=== PATIENT | female | born 1945 | race American Indian/Alaskan Native ===

== ENCOUNTER 2018-04-22 11:43 | Emergency (ER) | payer MEDICARE, MEDICAID ==
[2018-04-22 12:10] VITALS: BP 127/48
--- NOTE | 2018-04-22 15:40 | Emergency Department Report ---
ED General Adult HPI - General Chief complaint: Pain General Stated complaint: TOE PAIN Time Seen by Provider: 04/22/18 15:00 Source: patient Mode of arrival: Wheelchair Limitations: Physical Limitation - History of Present Illness Initial comments: Ms Knowles is a 72 year-old woman with extensive PMH who presents with pain in her left 4th and 5th toes. Was riding the medical van to her appointment on Wednesday and her left foot got stuck between her wheelchair and the rail inside the van. Has been having pain in her 4th and 5th toes since this time. Does not walk. bed and wheelchair bound. Decreased sensation in feet due to diabetes. No other acute complaints. - Related Data Allergies Allergy/AdvReac Type Severity Reaction Status Date / Time furosemide [From Lasix] Allergy Unknown Verified 04/22/18 12:14 latex Allergy Unknown Verified 04/22/18 12:14 aspirin AdvReac Vomiting Verified 04/22/18 12:14 morphine AdvReac Unknown Verified 04/22/18 12:14 tetracycline AdvReac Vomiting Verified 04/22/18 12:14 ED Review of Systems ROS: Stated complaint: TOE PAIN Other details as noted in HPI Comment: All other systems reviewed and negative ED Past Medical Hx - Past Medical History Previous Medical History?: Yes Hx Hypertension: Yes Hx Heart Attack/AMI: Yes Hx Congestive Heart Failure: Yes Hx Diabetes: Yes Hx GERD: Yes Hx Renal Disease: Yes Hx of Cancer: Yes (bone and blood) Hx Sickle Cell Disease: No (trait) Hx Arthritis: Yes Hx Headaches / Migraines: Yes Hx Asthma: Yes Hx COPD: Yes Additional medical history: fibromyalgia - Surgical History Past Surgical History?: Yes Hx Cholecystectomy: Yes Additional Surgical History: tubal, growth removed from left abdominal area, toncilectomy - Social History Smoking Status: Former Smoker Substance Use Type: None ED Physical Exam - General Limitations: No Limitations, Physical Limitation General appearance: alert, in no apparent distress - Head Head exam: Present: atraumatic, normocephalic - Eye Eye exam: Present: normal appearance. Absent: EOMI - ENT ENT exam: Present: normal exam, mucous membranes moist - Neck Neck exam: Present: normal inspection. Absent: tenderness - Cardiovascular Cardiovascular Exam: Present: regular rate, normal rhythm - Extremities Exam Extremities exam: Present: other (No swelling, no bruising to left 4th 5th toes. No foot bruising. minimal pedal edema, L>R. No calf tenderness, no leg swelling. Brisk cap refill in all digits. Sensation intact 4th 5th digits. ) - Neurological Exam Neurological exam: Present: alert, oriented X3 - Psychiatric Psychiatric exam: Present: normal affect, normal mood - Skin Skin exam: Present: warm, dry, intact, normal color ED Course Vital Signs 04/22/18 11:55 Temperature 98.4 F Pulse Rate 66 Respiratory 18 Rate Blood Pressure 127/48 O2 Sat by Pulse 98 Oximetry ED Medical Decision Making - Radiology Data IMPRESSION: Osteopenia limits evaluation. No obvious fracture. Vascular calcifications. Nulp-td-wjudbeae multifocal nonspecific arthrosis. Suspect hammertoe deformities at the 2nd 3rd digits. - Medical Decision Making Ms Knowles is a 72 year-old woman with left 4th 5th toe injuries. Sustained on Wednesday. No bruising, no swelling, neuro intact, vascular intact on exam. Not ambulatory. XR without fracture. Continue her home percocet for pain. DC to home. Critical care attestation.: If time is entered above; I have spent that time in minutes in the direct care of this critically ill patient, excluding procedure time. ED Disposition Clinical Impression: Toe injury Qualifiers: Encounter type: initial encounter Laterality: left Qualified Code(s): S99.922A - Unspecified injury of left foot, initial encounter Disposition: DC-01 TO HOME OR SELFCARE Is pt being admited?: No Does the pt Need Aspirin: No Condition: Stable Instructions: Foot Sprain (ED), Foot Contusion (ED) Referrals: PRIMARY CARE, [Primary Care Provider] - 3-5 Days
--- NOTE | 2018-04-22 16:19 | XRay Report ---
FINAL REPORT EXAM: XR FOOT 3+V LT HISTORY: foot injury, 4th/5th toe injuries TECHNIQUE: Three views left foot. PRIORS: None currently available. FINDINGS: Diffuse osteopenia. Vascular calcifications. Flexion deformities at the 2nd and 3rd toes. There is no acute fracture. There is no evidence for healing fracture. There is no acute dislocation. Nack-wo-gqnoyizo nonspecific arthrosis throughout the toe. Small Achilles enthesophyte and calcaneal plantar spur. There is no cortical destruction to suggest osteomyelitis. There are no suspicious osseous lesions. There are no radiopaque foreign objects. IMPRESSION: Osteopenia limits evaluation. No obvious fracture. Vascular calcifications. Moka-yj-incaqqdy multifocal nonspecific arthrosis. Suspect hammertoe deformities at the 2nd 3rd digits.
== END 2018-04-22 19:00 | disposition home or self-care (01) ==
LOC: ED 11:43
DX: S99.922A Unspecified injury of left foot, initial encounter (principal); I11.0 Hypertensive heart disease with heart failure; E11.9 Type 2 diabetes mellitus without complications; I50.9 Heart failure, unspecified; J44.9 Chronic obstructive pulmonary disease, unspecified; K21.9 Gastro-esophageal reflux disease without esophagitis; G43.909 Migraine, unspecified, not intractable, without status migrainosus; Z87.891 Personal history of nicotine dependence; Z85.830 Personal history of malignant neoplasm of bone; Z85.89 Personal history of malignant neoplasm of other organs and systems; Z88.1 Allergy status to other antibiotic agents; Z88.6 Allergy status to analgesic agent; Z88.8 Allergy status to other drugs, medicaments and biological substances; Z91.040 Latex allergy status; W22.8XXA Striking against or struck by other objects, initial encounter; Y93.89 Activity, other specified; Y92.89 Other specified places as the place of occurrence of the external cause; Y99.8 Other external cause status

== ENCOUNTER 2021-06-07 13:34 | Inpatient (IN) | payer MEDICARE ==
--- NOTE | 2021-06-07 14:46 | Event Note ---
Date: 06/07/21 The patient was evaluated in the emergency department for symptoms described in the history of present illness. He/she was evaluated in the context of the global COVID-19 pandemic, which necessitated consideration that the patient might be at risk for infection with the virus that causes COVID-19. Institutional protocols and algorithms that pertain to the evaluation of patients at risk for COVID-19 are in a state of rapid change based on information released by regulatory bodies including the CDC and federal and state organizations. These policies and algorithms were followed during the patient's care in the emergency department. Please note that these policies, procedures and recommendations changed on a rapid basis. Nursing team having difficulty obtaining IV access. Assisted my colleague in obtaining IV access. Using typical aseptic technique, the right neck is prepped in typical aseptic fashion. It is anesthetized with 5 cc of 1% lidocaine with epinephrine, and then a 2-1/2 inch 18-gauge Angiocath, 130 x 64 mm, is inserted into the right internal jugular vein, under direct ultrasound guidance. The catheter is advanced easily, and dark red blood is pulled back. The line is secured in place by caring team, and may be used for 24 hours for IV access. However, we do recommend that inpatient team obtain definitive IV access, such as PICC line or midline. If this patient does require a central line, guidewire may be passed through this Angiocath via Seldinger technique, using maximum barrier precautions in typical sterile technique, to obtain central venous access.
[2021-06-07] MEDS ORDERED: SODIUM CHLORIDE 0.9% 1000 ML 2,000 ML ONE ×2 (15:05)
[2021-06-07] MEDS ORDERED: NALOXONE 0.4 MG/1 ML INJ ONE (15:16)
--- NOTE | 2021-06-07 15:27 | Emergency Department Report ---
<TRAMAINE ESTRADA - Last Filed: 06/07/21 18:26> ED Altered Mental Status HPI - General Stated Complaint: AMS Time Seen by Provider: 06/07/21 14:52 - Related Data Allergies Allergy/AdvReac Type Severity Reaction Status Date / Time furosemide [From Lasix] Allergy Unknown Verified 04/22/18 12:14 latex Allergy Unknown Verified 04/22/18 12:14 aspirin AdvReac Vomiting Verified 04/22/18 12:14 morphine AdvReac Unknown Verified 04/22/18 12:14 tetracycline AdvReac Vomiting Verified 04/22/18 12:14 - Lab Data Result diagrams: 06/07/21 15:22 06/07/21 15:22 - Medical Decision Making I spoke with Dr. No. Dr. No hospitalist assessed the patient to the inpatient service. Patient is admitted to telemetry in fair condition ED Disposition Clinical Impression: Acute encephalopathy, GI bleed, Anemia, SIRS (systemic inflammatory response syndrome) Disposition: ADMITTED INPATIENT Is pt being admited?: Yes Does the pt Need Aspirin: No Condition: Fair <JOAN CORTEZ - Last Filed: 06/08/21 08:03> ED Altered Mental Status HPI - General Source: EMS - History of Present Illness Initial Comments: 75-year-old female, history of dementia, malnutrition, rheumatoid arthritis, diabetes, COPD, CAD, COVID-19, CKD, anemia of chronic disease, presents to ED from [facility] for altered mental status. Patient has been altered since 10 AM. snf states she is normally talkative. They also report patient has been "passing blood clots" for unknown period of time. MD Complaint: altered mental status -: This morning Severity: severe Context: unknown ED Review of Systems ROS: Stated complaint: AMS Other details as noted in HPI Comment: Unobtainable due to pts medical conditions ED Past Medical Hx - Past Medical History Hx Hypertension: Yes Hx Heart Attack/AMI: Yes Hx Congestive Heart Failure: Yes Hx Diabetes: Yes Hx GERD: Yes Hx Renal Disease: Yes Hx Sickle Cell Disease: No (trait) Hx Arthritis: Yes Hx Headaches / Migraines: Yes Hx Asthma: Yes Hx COPD: Yes Additional medical history: fibromyalgia - Surgical History Hx Cholecystectomy: Yes Additional Surgical History: tubal, growth removed from left abdominal area, toncilectomy - Social History Smoking Status: Former Smoker Substance Use Type: None ED Physical Exam - General General appearance: obtunded, other (appears unkempt) - Head Head exam: Present: atraumatic, normocephalic - Eye Pupils: Present: other (Pinpoint bilaterally) - ENT ENT exam: Present: mucous membranes dry - Neck Neck exam: Present: normal inspection - Respiratory Respiratory exam: Present: normal lung sounds bilaterally. Absent: respiratory distress - Cardiovascular Cardiovascular Exam: Present: normal rhythm, tachycardia - GI/Abdominal GI/Abdominal exam: Present: soft. Absent: distended, tenderness - Rectal Rectal exam: Present: heme (+) stool, black stool, other (Melena on exam) - Extremities Exam Extremities exam: Present: normal inspection - Neurological Exam Neurological exam: Present: other (GCS 7) - Skin Skin exam: Present: warm, dry, intact, normal color ED Course Vital Signs 06/07/21 06/07/21 06/07/21 13:37 13:45 14:01 Temperature Pulse Rate 112 H 108 H Respiratory 15 24 17 Rate Blood Pressure 106/54 114/61 O2 Sat by Pulse 96 100 100 Oximetry 06/07/21 06/07/21 06/07/21 14:15 14:31 14:45 Temperature Pulse Rate 107 H 101 H 96 H Respiratory 17 28 H 21 Rate Blood Pressure 109/55 113/61 102/55 O2 Sat by Pulse 100 100 100 Oximetry 06/07/21 06/07/21 06/07/21 15:01 15:15 15:31 Temperature Pulse Rate 102 H 99 H 106 H Respiratory 12 11 L 25 H Rate Blood Pressure 85/48 96/50 82/55 O2 Sat by Pulse 100 100 100 Oximetry 06/07/21 06/07/21 06/07/21 15:45 16:01 16:07 Temperature 97.6 F Pulse Rate 103 H 95 H 99 H Respiratory 20 22 12 Rate Blood Pressure 110/62 93/48 97/54 O2 Sat by Pulse 100 100 100 Oximetry 06/07/21 06/07/21 06/07/21 16:15 16:20 16:31 Temperature Pulse Rate 97 H 98 H Respiratory 15 14 Rate Blood Pressure 97/54 87/46 O2 Sat by Pulse 100 100 Oximetry 06/07/21 06/07/21 06/07/21 16:45 17:01 17:15 Temperature Pulse Rate 93 H 96 H 89 Respiratory 23 24 26 H Rate Blood Pressure 97/49 91/49 96/49 O2 Sat by Pulse 100 100 Oximetry 06/07/21 06/07/21 06/07/21 17:31 17:45 18:01 Temperature Pulse Rate 91 H 98 H 99 H Respiratory 19 20 21 Rate Blood Pressure 89/47 128/59 134/58 O2 Sat by Pulse 100 100 100 Oximetry 06/07/21 06/07/21 06/07/21 18:15 18:31 19:01 Temperature Pulse Rate 97 H 93 H 91 H Respiratory 19 20 20 Rate Blood Pressure 127/54 119/52 113/55 O2 Sat by Pulse 98 100 99 Oximetry 06/07/21 06/07/21 06/07/21 19:15 19:20 19:30 Temperature 92.5 F L Pulse Rate 92 H 91 H Respiratory 20 19 Rate Blood Pressure 99/50 99/50 O2 Sat by Pulse 100 100 Oximetry 06/07/21 06/07/21 06/07/21 19:45 20:01 20:15 Temperature Pulse Rate 93 H 90 93 H Respiratory 19 12 22 Rate Blood Pressure 100/52 110/49 101/44 O2 Sat by Pulse 100 100 99 Oximetry 06/07/21 06/07/21 06/07/21 20:30 21:15 21:30 Temperature Pulse Rate 90 91 H Respiratory 23 23 Rate Blood Pressure 94/46 101/44 O2 Sat by Pulse 100 100 100 Oximetry 06/07/21 06/07/21 06/07/21 22:15 22:31 23:00 Temperature 96.5 F L Pulse Rate 89 88 Respiratory 26 H 28 H Rate Blood Pressure 94/46 94/46 O2 Sat by Pulse 100 100 Oximetry 06/07/21 06/08/21 06/08/21 23:45 00:01 00:45 Temperature Pulse Rate 91 H 92 H 97 H Respiratory 28 H 26 H 27 H Rate Blood Pressure 92/47 92/47 90/48 O2 Sat by Pulse 100 99 99 Oximetry 06/08/21 06/08/21 06/08/21 01:01 01:29 01:31 Temperature 97.8 F Pulse Rate 99 H 98 H Respiratory 27 H 29 H Rate Blood Pressure 90/48 84/47 O2 Sat by Pulse 99 99 Oximetry 06/08/21 06/08/21 06/08/21 01:41 01:51 02:01 Temperature Pulse Rate 100 H 100 H 100 H Respiratory 27 H 28 H 28 H Rate Blood Pressure 84/46 84/46 84/46 O2 Sat by Pulse 99 99 99 Oximetry - Reevaluation(s) Reevaluation #1: 06/07/21 15:48 I spoke with daughter, Summer Dejesus, over the phone ([phone]). Daughter states that patient is actually DNR/DNI status, even though [facility] paperwork states that patient is full code. States she has a copy of the signed pa perwork. Daughter states she visited patient with her aunt last week. Daughter reports patient stated only that she was "tired." States patient did not say anything for the rest of the visit. Daughter states patient has stopped eating, stopped taking her medications. Physicians recommended that patient have a PEG tube placed, however patient refused. I have explained patient's condition to Chari Dejesus, which includes hypotension, GI bleed, altered mental status. Daughter states she does not want any escalation of care, including no blood transfusions, no GI procedures. Daughter states it is patient's wishes. - Central Line Placement Right Femoral Consent Obtained: emergent situation Time Out Performed: Yes Patient Placed on Monitor/Pulse Ox: Yes Prep: mask, gown, gloves Central Line Prep: Chlorhexidine scrub Ultrasound Used for Placement: Yes Reason for Insertion: Emergency Venous Access Complications: other (unable to thread guidewire, line was not placed) - Lab Data Result diagrams: 06/08/21 04:43 06/08/21 04:43 Lab Results 06/07/21 06/07/21 06/07/21 Range/Units 15:22 15:22 15:22 WBC 29.5 H (4.5-11.0) K/mm3 RBC 2.37 L (3.65-5.03) M/mm3 Hgb 6.8 L (10.1-14.3) gm/dl Hct 21.4 L (30.3-42.9) % MCV 90 (79-97) fl MCH 29 (28-32) pg MCHC 32 (30-34) % RDW 16.4 H (13.2-15.2) % Plt Count 472 H (140-440) K/mm3 Add Manual Diff Complete Total Counted 100 Seg Neutrophils % Major Gifts Director Seg Neuts % (Manual) 92.0 H (40.0-70.0) % Lymphocytes % (Manual) 4.0 L (13.4-35.0) % Monocytes % (Manual) 4.0 (0.0-7.3) % Nucleated RBC % Not Reportable Seg Neutrophils # Man 27.1 H (1.8-7.7) K/mm3 Band Neutrophils # 0.0 K/mm3 Lymphocytes # (Manual) 1.2 (1.2-5.4) K/mm3 Abs React Lymphs (Man) 0.0 K/mm3 Monocytes # (Manual) 1.2 H (0.0-0.8) K/mm3 Eosinophils # (Manual) 0.0 (0.0-0.4) K/mm3 Basophils # (Manual) 0.0 (0.0-0.1) K/mm3 Metamyelocytes # 0.0 K/mm3 Myelocytes # 0.0 K/mm3 Promyelocytes # 0.0 K/mm3 Blast Cells # 0.0 K/mm3 WBC Morphology Not Reportable Hypersegmented Neuts Not Reportable Hyposegmented Neuts Not Reportable Hypogranular Neuts Not Reportable Smudge Cells Not Reportable Toxic Granulation Not Reportable Toxic Vacuolation Not Reportable Dohle Bodies Not Reportable Pelger-Huet Anomaly Not Reportable Lupe Rods Not Reportable Platelet Estimate Not Reportable Clumped Platelets Not Reportable Plt Clumps, EDTA Not Reportable Large Platelets Not Reportable Giant Platelets Not Reportable Platelet Satelliting Not Reportable Plt Morphology Comment Not Reportable RBC Morphology Normal Dimorphic RBCs Not Reportable Polychromasia Not Reportable Hypochromasia Not Reportable Poikilocytosis Not Reportable Anisocytosis Not Reportable Microcytosis Not Reportable Macrocytosis Not Reportable Spherocytes Not Reportable Pappenheimer Bodies Not Reportable Sickle Cells Not Reportable Target Cells Not Reportable Tear Drop Cells Not Reportable Ovalocytes Not Reportable Helmet Cells Not Reportable Pulido-Villalba Bodies Not Reportable [place] Rings Not Reportable [place] Cells Not Reportable Bite Cells Not Reportable Crenated Cell Not Reportable Elliptocytes Not Reportable Acanthocytes (Spur) Not Reportable Rouleaux Not Reportable Hemoglobin C Crystals Not Reportable Schistocytes Not Reportable Malaria parasites Not Reportable Hung Bodies Not Reportable Hem Pathologist Commnt No PT 26.3 H (12.2-14.9) Sec. INR 2.36 H (0.87-1.13) APTT 22.9 L (24.2-36.6) Sec. D-Dimer 1156.32 H (0-234) ng/mlDDU Sodium (137-145) mmol/L Potassium (3.6-5.0) mmol/L Chloride (98-107) mmol/L Carbon Dioxide (22-30) mmol/L Anion Gap mmol/L BUN (7-17) mg/dL Creatinine (0.6-1.2) mg/dL Estimated GFR ml/min BUN/Creatinine Ratio % Glucose 298 H (65-100) mg/dL Lactic Acid (0.7-2.0) mmol/L Calcium (8.4-10.2) mg/dL Ferritin (10.0-200.0) ng/mL Total Bilirubin (0.1-1.2) mg/dL AST (5-40) units/L ALT (7-56) units/L Alkaline Phosphatase (35-129) units/L Lactate Dehydrogenase 2899 H (91-180) units/L C-Reactive Protein 15.10 H (0.00-1.30) mg/dL Total Protein (6.3-8.2) g/dL Albumin (3.9-5) g/dL Albumin/Globulin Ratio % Urine Color (Yellow) Urine Turbidity (Clear) Urine pH (5.0-7.0) Ur Specific [place] (1.003-1.030) Urine Protein (Negative) mg/dL Urine Glucose (UA) (Negative) mg/dL Urine Ketones (Negative) mg/dL Urine Blood (Negative) Urine Nitrite (Negative) Urine Bilirubin (Negative) Urine Urobilinogen (<2.0) mg/dL Ur Leukocyte Esterase (Negative) Urine WBC (Auto) (0.0-6.0) /HPF Urine RBC (Auto) (0.0-6.0) /HPF U Epithel Cells (Auto) (0-13.0) /HPF Urine Bacteria (Auto) (Negative) /HPF Urine WBC Clumps /HPF Urine Mucus /HPF Blood Type Antibody Screen 06/07/21 06/07/21 06/07/21 Range/Units 15:22 15:22 16:55 WBC (4.5-11.0) K/mm3 RBC (3.65-5.03) M/mm3 Hgb (10.1-14.3) gm/dl Hct (30.3-42.9) % MCV (79-97) fl MCH (28-32) pg MCHC (30-34) % RDW (13.2-15.2) % Plt Count (140-440) K/mm3 Add Manual Diff Total Counted Seg Neutrophils % Seg Neuts % (Manual) (40.0-70.0) % Lymphocytes % (Manual) (13.4-35.0) % Monocytes % (Manual) (0.0-7.3) % Nucleated RBC % Seg Neutrophils # Man (1.8-7.7) K/mm3 Band Neutrophils # K/mm3 Lymphocytes # (Manual) (1.2-5.4) K/mm3 Abs React Lymphs (Man) K/mm3 Monocytes # (Manual) (0.0-0.8) K/mm3 Eosinophils # (Manual) (0.0-0.4) K/mm3 Basophils # (Manual) (0.0-0.1) K/mm3 Metamyelocytes # K/mm3 Myelocytes # K/mm3 Promyelocytes # K/mm3 Blast Cells # K/mm3 WBC Morphology Hypersegmented Neuts Hyposegmented Neuts Hypogranular Neuts Smudge Cells Toxic Granulation Toxic Vacuolation Dohle Bodies Pelger-Huet Anomaly Lupe Rods Platelet Estimate Clumped Platelets Plt Clumps, EDTA Large Platelets Giant Platelets Platelet Satelliting Plt Morphology Comment RBC Morphology Dimorphic RBCs Polychromasia Hypochromasia Poikilocytosis Anisocytosis Microcytosis Macrocytosis Spherocytes Pappenheimer Bodies Sickle Cells Target Cells Tear Drop Cells Ovalocytes Helmet Cells Pulido-Villalba Bodies [place] Rings Jolie Cells Bite Cells Crenated Cell Elliptocytes Acanthocytes (Spur) Rouleaux Hemoglobin C Crystals Schistocytes Malaria parasites Hung Bodies Hem Pathologist Commnt PT (12.2-14.9) Sec. INR (0.87-1.13) APTT (24.2-36.6) Sec. D-Dimer (0-234) ng/mlDDU Sodium (137-145) mmol/L Potassium (3.6-5.0) mmol/L Chloride (98-107) mmol/L Carbon Dioxide (22-30) mmol/L Anion Gap mmol/L BUN (7-17) mg/dL Creatinine (0.6-1.2) mg/dL Estimated GFR ml/min BUN/Creatinine Ratio % Glucose (65-100) mg/dL Lactic Acid 4.10 H* 6.60 H* (0.7-2.0) mmol/L Calcium (8.4-10.2) mg/dL Ferritin 06529.0 H (10.0-200.0) ng/mL Total Bilirubin (0.1-1.2) mg/dL AST (5-40) units/L ALT (7-56) units/L Alkaline Phosphatase (35-129) units/L Lactate Dehydrogenase (91-180) units/L C-Reactive Protein (0.00-1.30) mg/dL Total Protein (6.3-8.2) g/dL Albumin (3.9-5) g/dL Albumin/Globulin Ratio % Urine Color (Yellow) Urine Turbidity (Clear) Urine pH (5.0-7.0) Ur Specific [place] (1.003-1.030) Urine Protein (Negative) mg/dL Urine Glucose (UA) (Negative) mg/dL Urine Ketones (Negative) mg/dL Urine Blood (Negative) Urine Nitrite (Negative) Urine Bilirubin (Negative) Urine Urobilinogen (<2.0) mg/dL Ur Leukocyte Esterase (Negative) Urine WBC (Auto) (0.0-6.0) /HPF Urine RBC (Auto) (0.0-6.0) /HPF U Epithel Cells (Auto) (0-13.0) /HPF Urine Bacteria (Auto) (Negative) /HPF Urine WBC Clumps /HPF Urine Mucus /HPF Blood Type Antibody Screen 06/07/21 06/07/21 06/07/21 Range/Units 17:00 23:14 Unknown WBC (4.5-11.0) K/mm3 RBC (3.65-5.03) M/mm3 Hgb (10.1-14.3) gm/dl Hct (30.3-42.9) % MCV (79-97) fl MCH (28-32) pg MCHC (30-34) % RDW (13.2-15.2) % Plt Count (140-440) K/mm3 Add Manual Diff Total Counted Seg Neutrophils % Seg Neuts % (Manual) (40.0-70.0) % Lymphocytes % (Manual) (13.4-35.0) % Monocytes % (Manual) (0.0-7.3) % Nucleated RBC % Seg Neutrophils # Man (1.8-7.7) K/mm3 Band Neutrophils # K/mm3 Lymphocytes # (Manual) (1.2-5.4) K/mm3 Abs React Lymphs (Man) K/mm3 Monocytes # (Manual) (0.0-0.8) K/mm3 Eosinophils # (Manual) (0.0-0.4) K/mm3 Basophils # (Manual) (0.0-0.1) K/mm3 Metamyelocytes # K/mm3 Myelocytes # K/mm3 Promyelocytes # K/mm3 Blast Cells # K/mm3 WBC Morphology Hypersegmented Neuts Hyposegmented Neuts Hypogranular Neuts Smudge Cells Toxic Granulation Toxic Vacuolation Dohle Bodies Pelger-Huet Anomaly Lupe Rods Platelet Estimate Clumped Platelets Plt Clumps, EDTA Large Platelets Giant Platelets Platelet Satelliting Plt Morphology Comment RBC Morphology Dimorphic RBCs Polychromasia Hypochromasia Poikilocytosis Anisocytosis Microcytosis Macrocytosis Spherocytes Pappenheimer Bodies Sickle Cells Target Cells Tear Drop Cells Ovalocytes Helmet Cells Pulido-Villalba Bodies [place] Rings Jolie Cells Bite Cells Crenated Cell Elliptocytes Acanthocytes (Spur) Rouleaux Hemoglobin C Crystals Schistocytes Malaria parasites Hung Bodies Hem Pathologist Commnt PT (12.2-14.9) Sec. INR (0.87-1.13) APTT (24.2-36.6) Sec. D-Dimer (0-234) ng/mlDDU Sodium 140 (137-145) mmol/L Potassium 4.2 (3.6-5.0) mmol/L Chloride 106.9 (98-107) mmol/L Carbon Dioxide 8 L* (22-30) mmol/L Anion Gap 29 mmol/L BUN 83 H (7-17) mg/dL Creatinine 2.1 H (0.6-1.2) mg/dL Estimated GFR 28 ml/min BUN/Creatinine Ratio 40 % Glucose 243 H (65-100) mg/dL Lactic Acid (0.7-2.0) mmol/L Calcium 10.1 (8.4-10.2) mg/dL Ferritin (10.0-200.0) ng/mL Total Bilirubin 0.40 (0.1-1.2) mg/dL AST 59 H (5-40) units/L ALT 21 (7-56) units/L Alkaline Phosphatase 135 H (35-129) units/L Lactate Dehydrogenase (91-180) units/L C-Reactive Protein (0.00-1.30) mg/dL Total Protein 5.1 L (6.3-8.2) g/dL Albumin 2.2 L (3.9-5) g/dL Albumin/Globulin Ratio 0.8 % Urine Color Yellow (Yellow) Urine Turbidity Turbid (Clear) Urine pH 5.0 (5.0-7.0) Ur Specific [place] 1.010 (1.003-1.030) Urine Protein >500 (Negative) mg/dL Urine Glucose (UA) Neg (Negative) mg/dL Urine Ketones Neg (Negative) mg/dL Urine Blood Lg (Negative) Urine Nitrite Neg (Negative) Urine Bilirubin Neg (Negative) Urine Urobilinogen < 2.0 (<2.0) mg/dL Ur Leukocyte Esterase Mod (Negative) Urine WBC (Auto) > 182.0 H (0.0-6.0) /HPF Urine RBC (Auto) 51.0 (0.0-6.0) /HPF U Epithel Cells (Auto) 9.0 (0-13.0) /HPF Urine Bacteria (Auto) 4+ (Negative) /HPF Urine WBC Clumps 3+ /HPF Urine Mucus 3+ /HPF Blood Type O POSITIVE Antibody Screen Negative - Medical Decision Making 75-year-old female presents to ED from retirement with altered mental status and GI bleed. Patient is obtunded. She does have some minimal withdrawal to pain. Patient has melena on rectal exam. Patient initially with normal blood pressure, however has been trending downward. Labs show elevated WBC count of 29.5. Hemoglobin is 6.8. snf records show that patient has a history of anemia of chronic disease, however we do not have a previous hemoglobin for comparison. Patient has lactic acid of 4.1. Covid markers were placed by nurse however patient apparently already had Covid last month, per EMS. I spoke with patient's daughter, who states that patient's CODE STATUS is DNR/DNI. Daughter does not want any aggressive treatment for patient. IV fluids, antibiotics, and Protonix have been ordered. Patient will likely need a hospice consult. I was unable to speak with hospitalist for admission as he was with a critical patient at this time. Oncoming physician, Dr. Estrada, will admit to Dr. No. - Differential Diagnosis GI bleed, dehydration, anemia, failure to thrive, infection Critical Care Time: Yes Critical care time in (mins) excluding proc time.: 35 Critical care attestation.: If time is entered above; I have spent that time in minutes in the direct care of this critically ill patient, excluding procedure time. Critical Care Time: 35 min
[2021-06-07 15:41] LABS: Hematocrit 21.4 % (30.3-42.9); Hemoglobin 6.8 gm/dl (10.1-14.3); Mean Corpuscular HGB Conc 32 % (30-34); Mean Corpuscular Volume 90 fl (79-97); Platelet Count 472 K/mm3 (140-440); Red Blood Count 2.37 M/mm3 (3.65-5.03); Red Cell Distribution Width 16.4 % (13.2-15.2)
[2021-06-07 15:51] LABS: INR 2.36 (0.87-1.13); Partial Thromboplastin Time 22.9 Sec. (24.2-36.6)
[2021-06-07 15:56] LABS: C-Reactive Protein 15.1 mg/dL (0.00-1.30)
--- NOTE | 2021-06-07 16:21 | XRay Report ---
CHEST 1 VIEW 06/07/2021 3:15 PM INDICATION / CLINICAL INFORMATION: AMS. COMPARISON: None available. FINDINGS: SUPPORT DEVICES: None. HEART / MEDIASTINUM: No significant abnormality. LUNGS / PLEURA: No significant pulmonary or pleural abnormality. No pneumothorax. ADDITIONAL FINDINGS: Advanced bilateral shoulder degenerative arthrosis. IMPRESSION: 1. No acute findings. Signer Name: Aria Dyer MD Signed: 06/07/2021 4:16 PM Workstation Name: [id number]
[2021-06-07] MEDS ORDERED: CEFEPIME/NS 1 GM/100 ML 1 GM/100 ML BAG IV ONE (16:32)
[2021-06-07] MEDS ORDERED: SODIUM CHLORIDE 0.9% 1000 ML IV SOLN IV ONE (16:33)
[2021-06-07] MEDS ORDERED: PANTOPRAZOLE 40 MG INJ IV ONE (16:35)
[2021-06-07] MEDS ORDERED: PANTOPRAZOLE 80 MG in SODIUM CHLORIDE 0.9% 100 ML IV SCH (17:00)
[2021-06-07] MEDS ORDERED: VANCOMYCIN 1,250 MG in SODIUM CHLORIDE 0.9% 250ML 250 ML IV ONE (17:00)
[2021-06-07 17:21] LABS: Total Cells Counted 100
[2021-06-07 17:22] LABS: RBC Morphology Normal
--- NOTE | 2021-06-07 21:24 | History and Physical Report ---
History of Present Illness Date of examination: 06/07/21 Date of admission: 06/07/2021 Chief complaint: Lower GI bleed 1 day History of present illness: 75-year-old female with history of dementia malnutrition, rheumatoid arthritis diabetes, coronary artery disease COVID-19 and chronic kidney disease sent from [facility] for altered mental status. Patient apparently is normally talkative. Nursing also reports passing blood clots for 1 day. Daughter does not want any blood transfusions or further interventions. Patient daughter wants hospice placement. - Past Medical History --Hypertension: Yes --Heart Attack/AMI: Yes --Congestive Heart Failure: Yes --Diabetes: Yes --GERD: Yes --Renal Disease: Yes Additional medical history: fibromyalgia - Surgical History --Cholecystectomy: Yes Additional Surgical History: tubal, growth removed from left abdominal area, ton cilectomy - Social History Smoking Status: Former Smoker Substance Use Type: None Review of Systems Comment: Unobtainable due to pts medical conditions Medications and Allergies Allergies Allergy/AdvReac Type Severity Reaction Status Date / Time furosemide [From Lasix] Allergy Unknown Verified 04/22/18 12:14 latex Allergy Unknown Verified 04/22/18 12:14 aspirin AdvReac Vomiting Verified 04/22/18 12:14 morphine AdvReac Unknown Verified 04/22/18 12:14 tetracycline AdvReac Vomiting Verified 04/22/18 12:14 Home Medications Medication Instructions Recorded Confirmed Last Taken Type Sertraline [Zoloft] 25 mg PO QDAY 06/08/21 06/08/21 06/06/21 History Topiramate [Topamax] 25 mg PO DAILY 06/08/21 06/08/21 06/06/21 History predniSONE [Deltasone] 5 mg PO QDAY 06/08/21 06/08/21 06/06/21 History Active Meds: Active Medications Pantoprazole Sodium 80 mg/ (Sodium Chloride) 100 mls @ 10 mls/hr IV DIRECT KIM Last Admin: 06/07/21 19:09 Dose: 8 mg/hr, 10 mls/hr Documented by: Exam - Constitutional Vitals: Temp Pulse Resp BP Pulse Ox 97.6 F 93 H 22 101/44 100 06/07/21 16:07 06/07/21 20:15 06/07/21 20:15 06/07/21 20:15 06/07/21 20:30 General appearance: Present: no acute distress, well-nourished - EENT Eyes: Present: PERRL ENT: hearing intact, clear oral mucosa - Neck Neck: Present: supple, normal ROM - Respiratory Respiratory effort: normal Respiratory: bilateral: CTA - Cardiovascular Heart rate: 78 Rhythm: regular Heart Sounds: Present: S1 & S2. Absent: rub, click - Extremities Extremities: pulses symmetrical, No edema Peripheral Pulses: within normal limits - Abdominal General gastrointestinal: Present: soft, non-tender, non-distended, normal bowel sounds Female genitourinary: Present: normal - Integumentary Integumentary: Present: clear, warm, dry - Musculoskeletal Musculoskeletal: generalized weakness - Psychiatric Psychiatric: other (Lethargic and confused) - Neurologic Neurologic: moves all extremities - Allied Health Allied health notes reviewed: nursing, case management Results - Labs CBC & Chem 7: 06/08/21 04:43 06/08/21 04:43 Labs: Laboratory Last Values WBC 29.5 K/mm3 (4.5-11.0) H 06/07/21 15:22 RBC 2.37 M/mm3 (3.65-5.03) L 06/07/21 15:22 Hgb 6.8 gm/dl (10.1-14.3) L 06/07/21 15:22 Hct 21.4 % (30.3-42.9) L 06/07/21 15:22 MCV 90 fl (79-97) 06/07/21 15:22 MCH 29 pg (28-32) 06/07/21 15:22 MCHC 32 % (30-34) 06/07/21 15:22 RDW 16.4 % (13.2-15.2) H 06/07/21 15:22 Plt Count 472 K/mm3 (140-440) H 06/07/21 15:22 Add Manual Diff Complete 06/07/21 15:22 Total Counted 100 06/07/21 15:22 Seg Neutrophils % Manager [employer] 06/07/21 15:22 Seg Neuts % (Manual) 92.0 % (40.0-70.0) H 06/07/21 15:22 Lymphocytes % (Manual) 4.0 % (13.4-35.0) L 06/07/21 15:22 Monocytes % (Manual) 4.0 % (0.0-7.3) 06/07/21 15:22 Nucleated RBC % Not Reportable 06/07/21 15:22 Seg Neutrophils # Man 27.1 K/mm3 (1.8-7.7) H 06/07/21 15:22 Band Neutrophils # 0.0 K/mm3 06/07/21 15:22 Lymphocytes # (Manual) 1.2 K/mm3 (1.2-5.4) 06/07/21 15:22 Abs React Lymphs (Man) 0.0 K/mm3 06/07/21 15:22 Monocytes # (Manual) 1.2 K/mm3 (0.0-0.8) H 06/07/21 15:22 Eosinophils # (Manual) 0.0 K/mm3 (0.0-0.4) 06/07/21 15:22 Basophils # (Manual) 0.0 K/mm3 (0.0-0.1) 06/07/21 15:22 Metamyelocytes # 0.0 K/mm3 06/07/21 15:22 Myelocytes # 0.0 K/mm3 06/07/21 15:22 Promyelocytes # 0.0 K/mm3 06/07/21 15:22 Blast Cells # 0.0 K/mm3 06/07/21 15:22 WBC Morphology Not Reportable 06/07/21 15:22 Hypersegmented Neuts Not Reportable 06/07/21 15:22 Hyposegmented Neuts Not Reportable 06/07/21 15:22 Hypogranular Neuts Not Reportable 06/07/21 15:22 Smudge Cells Not Reportable 06/07/21 15:22 Toxic Granulation Not Reportable 06/07/21 15:22 Toxic Vacuolation Not Reportable 06/07/21 15:22 Dohle Bodies Not Reportable 06/07/21 15:22 Pelger-Huet Anomaly Not Reportable 06/07/21 15:22 Lupe Rods Not Reportable 06/07/21 15:22 Platelet Estimate Not Reportable 06/07/21 15:22 Clumped Platelets Not Reportable 06/07/21 15:22 Plt Clumps, EDTA Not Reportable 06/07/21 15:22 Large Platelets Not Reportable 06/07/21 15:22 Giant Platelets Not Reportable 06/07/21 15:22 Platelet Satelliting Not Reportable 06/07/21 15:22 Plt Morphology Comment Not Reportable 06/07/21 15:22 RBC Morphology Normal 06/07/21 15:22 Dimorphic RBCs Not Reportable 06/07/21 15:22 Polychromasia Not Reportable 06/07/21 15:22 Hypochromasia Not Reportable 06/07/21 15:22 Poikilocytosis Not Reportable 06/07/21 15:22 Anisocytosis Not Reportable 06/07/21 15:22 Microcytosis Not Reportable 06/07/21 15:22 Macrocytosis Not Reportable 06/07/21 15:22 Spherocytes Not Reportable 06/07/21 15:22 Pappenheimer Bodies Not Reportable 06/07/21 15:22 Sickle Cells Not Reportable 06/07/21 15:22 Target Cells Not Reportable 06/07/21 15:22 Tear Drop Cells Not Reportable 06/07/21 15:22 Ovalocytes Not Reportable 06/07/21 15:22 Helmet Cells Not Reportable 06/07/21 15:22 [place] Bodies Not Reportable 06/07/21 15:22 [place] Rings Not Reportable 06/07/21 15:22 Jolie Cells Not Reportable 06/07/21 15:22 Bite Cells Not Reportable 06/07/21 15:22 Crenated Cell Not Reportable 06/07/21 15:22 Elliptocytes Not Reportable 06/07/21 15:22 Acanthocytes (Spur) Not Reportable 06/07/21 15:22 Rouleaux Not Reportable 06/07/21 15:22 Hemoglobin C Crystals Not Reportable 06/07/21 15:22 Schistocytes Not Reportable 06/07/21 15:22 Malaria parasites Not Reportable 06/07/21 15:22 Hung Bodies Not Reportable 06/07/21 15:22 Hem Pathologist Commnt No 06/07/21 15:22 PT 26.3 Sec. (12.2-14.9) H 06/07/21 15:22 INR 2.36 (0.87-1.13) H 06/07/21 15:22 APTT 22.9 Sec. (24.2-36.6) L 06/07/21 15:22 D-Dimer 1156.32 ng/mlDDU (0-234) H 06/07/21 15:22 Glucose 298 mg/dL (65-100) H 06/07/21 15:22 Lactic Acid 6.60 mmol/L (0.7-2.0) H* 06/07/21 16:55 Ferritin 18879.0 ng/mL (10.0-200.0) H 06/07/21 15:22 Lactate Dehydrogenase 2899 units/L (91-180) H 06/07/21 15:22 C-Reactive Protein 15.10 mg/dL (0.00-1.30) H 06/07/21 15:22 Blood Type O POSITIVE 06/07/21 17:00 Antibody Screen Negative 06/07/21 17:00 Assessment and Plan Advance Directives: Yes (DNR) Plan of care discussed with patient/family: Yes - Patient Problems (1) Acute encephalopathy Current Visit: Yes Status: Acute Plan to address problem: Multifactorial including sepsis DONNIE and severe anemia (2) Sepsis Current Visit: Yes Status: Acute Plan to address problem: Patient has a high white count and urinary tract infection (3) Anemia Current Visit: Yes Status: Acute Plan to address problem: Patient had a slow GI bleed Daughter does not want any intervention GI consult was not requested (4) GI bleed Current Visit: Yes Status: Acute Plan to address problem: No blood transfusions as per daughter (5) Severe malnutrition Current Visit: Yes Status: Acute Plan to address problem: Dietitian consult requested (6) Urinary tract infection Current Visit: Yes Status: Acute Plan to address problem: On IV ceftriaxone (7) DVT prophylaxis Current Visit: Yes Status: Acute Plan to address problem: On anticoagulation and GI prophylaxis (8) Advanced directives, counseling/discussion Current Visit: Yes Status: Acute Plan to address problem: Daughter wants hospice placement No blood transfusions
[2021-06-07] MEDS ORDERED: ONDANSETRON 4 MG/2 ML INJ IV PRN (21:28)
[2021-06-07] MEDS ORDERED: MORPHINE 2 MG/1 ML INJ IV PRN (21:28)
[2021-06-07] MEDS ORDERED: HYDROmorphone 1 MG/1 ML INJ IV PRN (21:28)
[2021-06-07] MEDS ORDERED: ACETAMINOPHEN 325 MG TAB PO PRN (21:28)
[2021-06-07 23:13] LABS: Bacteria,Urine 4+ /HPF (Negative); Bilirubin,Urine NEG (Negative); Blood,Urine LG (Negative); Color,Urine Yellow (Yellow); Mucus,Urine 3+ /HPF; Urobilinogen,Urine < 2.0 mg/dL (<2.0)
[2021-06-07 23:15] LABS: Protein,Urine >500 mg/dL (Negative); WBC,Urine > 182.0 /HPF (0.0-6.0)
[2021-06-07] MEDS: PANTOPRAZOLE 40 MG INJ IV SCH (23:40)
[2021-06-07] MEDS: D5W/0.9% NACL 1,000 ML IV SCH (23:41)
[2021-06-07 23:52] LABS: Albumin 2.2 g/dL (3.9-5); Calcium 10.1 mg/dL (8.4-10.2)
[2021-06-08 06:14] LABS: Albumin 1.7 g/dL (3.9-5); Calcium 10.1 mg/dL (8.4-10.2)
[2021-06-08 06:16] LABS: Hematocrit 21.1 % (30.3-42.9); Hemoglobin 6.2 gm/dl (10.1-14.3); Mean Corpuscular HGB Conc 29 % (30-34); Mean Corpuscular Volume 100 fl (79-97); Platelet Count 373 K/mm3 (140-440); Red Blood Count 2.12 M/mm3 (3.65-5.03); Red Cell Distribution Width 17.7 % (13.2-15.2)
[2021-06-08 09:39] LABS: Anisocytosis 1+; Monocytes % (Manual) 7.5 % (0.0-7.3); Platelet Estimate Consistent w Auto; Total Cells Counted 200; Toxic Granulation 2+
[2021-06-08] MEDS: PANTOPRAZOLE 40 MG INJ IV SCH ×2 (09:44→21:20)
[2021-06-08] MEDS: D5W/0.9% NACL 1,000 ML IV SCH ×2 (09:45→21:21)
[2021-06-08] MEDS ORDERED: NALOXONE 2 MG/2 ML INJ IV ONE (15:15)
--- NOTE | 2021-06-08 15:19 | Progress Note ---
Assessment and Plan - Patient Problems (1) Sepsis Current Visit: Yes Status: Acute Plan to address problem: Patient has a high white count and urinary tract infection (2) Acute encephalopathy Current Visit: Yes Status: Acute Plan to address problem: Multifactorial including sepsis DONNIE and severe anemia (3) GI bleed Current Visit: Yes Status: Acute Plan to address problem: No blood transfusions as per daughter (4) Anemia Current Visit: Yes Status: Acute Plan to address problem: Patient had a slow GI bleed Daughter does not want any intervention GI consult was not requested (5) Severe malnutrition Current Visit: Yes Status: Acute Plan to address problem: Dietitian consult requested (6) DVT prophylaxis Current Visit: Yes Status: Acute (7) Urinary tract infection Current Visit: Yes Status: Acute Plan to address problem: On IV ceftriaxone Subjective Date of service: 06/01/21 Objective - Constitutional Vitals: Vital Signs - 12hr 06/08/21 06/08/21 06/08/21 04:35 04:51 08:05 Temperature 98.2 F Pulse Rate 102 H 54 L Respiratory 22 Rate Blood Pressure 100/47 O2 Sat by Pulse 98 91 Oximetry 06/08/21 06/08/21 09:50 12:00 Temperature Pulse Rate 81 Respiratory Rate Blood Pressure O2 Sat by Pulse 97 Oximetry General appearance: Present: no acute distress, well-nourished - EENT Eyes: PERRL, EOM intact ENT: hearing intact, clear oral mucosa Ears: bilateral: normal - Neck Neck: supple, normal ROM - Respiratory Respiratory effort: normal Respiratory: bilateral: CTA - Breasts Breasts: normal - Cardiovascular Rhythm: regular Heart Sounds: Present: S1 & S2. Absent: gallop, rub Extremities: pulses intact, No edema, normal color, Full ROM - Gastrointestinal General gastrointestinal: Present: soft, non-tender, non-distended, normal bowel sounds - Genitourinary Female genitourinary: normal - Integumentary Integumentary: clear, warm, dry - Musculoskeletal Musculoskeletal: 1, strength equal bilaterally - Neurologic Neurologic: moves all extremities - Psychiatric Psychiatric: memory intact, appropriate mood/affect, intact judgment & insight - Labs CBC & Chem 7: 06/08/21 04:43 06/08/21 04:43 Labs: Abnormal lab results 06/07/21 06/07/21 06/07/21 Range/Units 15:22 15:22 15:22 WBC 29.5 H (4.5-11.0) K/mm3 RBC 2.37 L (3.65-5.03) M/mm3 Hgb 6.8 L (10.1-14.3) gm/dl Hct 21.4 L (30.3-42.9) % MCV (79-97) fl MCHC (30-34) % RDW 16.4 H (13.2-15.2) % Plt Count 472 H (140-440) K/mm3 Seg Neuts % (Manual) 92.0 H (40.0-70.0) % Lymphocytes % (Manual) 4.0 L (13.4-35.0) % Monocytes % (Manual) (0.0-7.3) % Seg Neutrophils # Man 27.1 H (1.8-7.7) K/mm3 Lymphocytes # (Manual) (1.2-5.4) K/mm3 Monocytes # (Manual) 1.2 H (0.0-0.8) K/mm3 PT 26.3 H (12.2-14.9) Sec. INR 2.36 H (0.87-1.13) APTT 22.9 L (24.2-36.6) Sec. D-Dimer 1156.32 H (0-234) ng/mlDDU Carbon Dioxide (22-30) mmol/L BUN (7-17) mg/dL Creatinine (0.6-1.2) mg/dL Glucose 298 H (65-100) mg/dL Lactic Acid (0.7-2.0) mmol/L Ferritin (10.0-200.0) ng/mL AST (5-40) units/L ALT (7-56) units/L Alkaline Phosphatase (35-129) units/L Lactate Dehydrogenase 2899 H (91-180) units/L C-Reactive Protein 15.10 H (0.00-1.30) mg/dL Total Protein (6.3-8.2) g/dL Albumin (3.9-5) g/dL Urine WBC (Auto) (0.0-6.0) /HPF 06/07/21 06/07/21 06/07/21 Range/Units 15:22 15:22 16:55 WBC (4.5-11.0) K/mm3 RBC (3.65-5.03) M/mm3 Hgb (10.1-14.3) gm/dl Hct (30.3-42.9) % MCV (79-97) fl MCHC (30-34) % RDW (13.2-15.2) % Plt Count (140-440) K/mm3 Seg Neuts % (Manual) (40.0-70.0) % Lymphocytes % (Manual) (13.4-35.0) % Monocytes % (Manual) (0.0-7.3) % Seg Neutrophils # Man (1.8-7.7) K/mm3 Lymphocytes # (Manual) (1.2-5.4) K/mm3 Monocytes # (Manual) (0.0-0.8) K/mm3 PT (12.2-14.9) Sec. INR (0.87-1.13) APTT (24.2-36.6) Sec. D-Dimer (0-234) ng/mlDDU Carbon Dioxide (22-30) mmol/L BUN (7-17) mg/dL Creatinine (0.6-1.2) mg/dL Glucose (65-100) mg/dL Lactic Acid 4.10 H* 6.60 H* (0.7-2.0) mmol/L Ferritin 80344.0 H (10.0-200.0) ng/mL AST (5-40) units/L ALT (7-56) units/L Alkaline Phosphatase (35-129) units/L Lactate Dehydrogenase (91-180) units/L C-Reactive Protein (0.00-1.30) mg/dL Total Protein (6.3-8.2) g/dL Albumin (3.9-5) g/dL Urine WBC (Auto) (0.0-6.0) /HPF 06/07/21 06/07/21 06/08/21 Range/Units 23:14 Unknown 04:43 WBC 40.6 H* (4.5-11.0) K/mm3 RBC 2.12 L (3.65-5.03) M/mm3 Hgb 6.2 L (10.1-14.3) gm/dl Hct 21.1 L (30.3-42.9) % MCV 100 H (79-97) fl MCHC 29 L (30-34) % RDW 17.7 H (13.2-15.2) % Plt Count (140-440) K/mm3 Seg Neuts % (Manual) 90.5 H (40.0-70.0) % Lymphocytes % (Manual) 2.0 L (13.4-35.0) % Monocytes % (Manual) 7.5 H (0.0-7.3) % Seg Neutrophils # Man 36.7 H (1.8-7.7) K/mm3 Lymphocytes # (Manual) 0.8 L (1.2-5.4) K/mm3 Monocytes # (Manual) 3.0 H (0.0-0.8) K/mm3 PT (12.2-14.9) Sec. INR (0.87-1.13) APTT (24.2-36.6) Sec. D-Dimer (0-234) ng/mlDDU Carbon Dioxide 8 L* (22-30) mmol/L BUN 83 H (7-17) mg/dL Creatinine 2.1 H (0.6-1.2) mg/dL Glucose 243 H (65-100) mg/dL Lactic Acid (0.7-2.0) mmol/L Ferritin (10.0-200.0) ng/mL AST 59 H (5-40) units/L ALT (7-56) units/L Alkaline Phosphatase 135 H (35-129) units/L Lactate Dehydrogenase (91-180) units/L C-Reactive Protein (0.00-1.30) mg/dL Total Protein 5.1 L (6.3-8.2) g/dL Albumin 2.2 L (3.9-5) g/dL Urine WBC (Auto) > 182.0 H (0.0-6.0) /HPF 06/08/21 Range/Units 04:43 WBC (4.5-11.0) K/mm3 RBC (3.65-5.03) M/mm3 Hgb (10.1-14.3) gm/dl Hct (30.3-42.9) % MCV (79-97) fl MCHC (30-34) % RDW (13.2-15.2) % Plt Count (140-440) K/mm3 Seg Neuts % (Manual) (40.0-70.0) % Lymphocytes % (Manual) (13.4-35.0) % Monocytes % (Manual) (0.0-7.3) % Seg Neutrophils # Man (1.8-7.7) K/mm3 Lymphocytes # (Manual) (1.2-5.4) K/mm3 Monocytes # (Manual) (0.0-0.8) K/mm3 PT (12.2-14.9) Sec. INR (0.87-1.13) APTT (24.2-36.6) Sec. D-Dimer (0-234) ng/mlDDU Carbon Dioxide 7 L* (22-30) mmol/L BUN 80 H (7-17) mg/dL Creatinine 2.1 H (0.6-1.2) mg/dL Glucose 265 H (65-100) mg/dL Lactic Acid (0.7-2.0) mmol/L Ferritin (10.0-200.0) ng/mL AST 600 H (5-40) units/L ALT 103 H (7-56) units/L Alkaline Phosphatase (35-129) units/L Lactate Dehydrogenase (91-180) units/L C-Reactive Protein (0.00-1.30) mg/dL Total Protein 5.3 L (6.3-8.2) g/dL Albumin 1.7 L (3.9-5) g/dL Urine WBC (Auto) (0.0-6.0) /HPF
[2021-06-08] MEDS ORDERED: WATER FOR INJ Sterile (PF) 10 ML ONE (21:29)
[2021-06-09] MEDS: D5W/0.9% NACL 1,000 ML IV SCH (06:41)
[2021-06-09] MEDS ORDERED: SODIUM CHLORIDE 0.9% 1000 ML 1,000 ML IV SCH (09:00)
[2021-06-09] MEDS ORDERED: cefTRIAXone/NS 1 GM/50 ML 1 GM/50 ML BAG IV SCH (10:00)
[2021-06-09] MEDS: PANTOPRAZOLE 40 MG INJ IV SCH (10:15)
[2021-06-09 21:56] VITALS: BP 69/40
--- NOTE | 2021-06-10 02:13 | Death Note ---
Note Date of : 06/09/21 Time of : 23:55 Time Pronounced: 23:57 - Preliminary Cause of (problem) (1) Cardiac asystole Preliminary cause of Called to bedside by nurse. Upon examination no heart sounds are spontaneous respirations noted, no response to tactile stimuli, pupils are fixed. Patient is DNR, so no ACLS protocols were initiated, and allowed for natural to occur. Time of 2355 (2) Sepsis Preliminary cause of (3) GI bleed Preliminary cause of (4) Urinary tract infection Preliminary cause of
== END 2021-06-10 03:34 | DRG 871 ==
LOC: ED 13:34 → 4A 06-08 00:47
PROVIDERS: ADMIT Internal Medicine; ATTEND Internal Medicine
DX: A41.9 Sepsis, unspecified organism (principal); E43 Unspecified severe protein-calorie malnutrition; N39.0 Urinary tract infection, site not specified; G93.40 Encephalopathy, unspecified; Z68.1 Body mass index [BMI] 19.9 or less, adult; K92.2 Gastrointestinal hemorrhage, unspecified; I13.0 Hypertensive heart and chronic kidney disease with heart failure and stage 1 through stage 4 chronic kidney disease, or unspecified chronic kidney disease; Z66 Do not resuscitate; D64.9 Anemia, unspecified; Z88.8 Allergy status to other drugs, medicaments and biological substances; Z87.891 Personal history of nicotine dependence; Z88.6 Allergy status to analgesic agent; Z91.040 Latex allergy status; F03.90 Unspecified dementia, unspecified severity, without behavioral disturbance, psychotic disturbance, mood disturbance, and anxiety; I00 Rheumatic fever without heart involvement; J44.9 Chronic obstructive pulmonary disease, unspecified; I25.10 Atherosclerotic heart disease of native coronary artery without angina pectoris; N18.9 Chronic kidney disease, unspecified; I50.9 Heart failure, unspecified; M79.7 Fibromyalgia; I25.2 Old myocardial infarction; G43.909 Migraine, unspecified, not intractable, without status migrainosus; R62.7 Adult failure to thrive
CPT/HCPCS: 36415; 71045; 80053; 81001; 82140; 82728; 82947; 83520; 83615; 84145; 85007; 85025; 85379; 85610; 85730; 86140; 86850; 86900; 86901; 87040; 87086; G0378; C9113; J0696; J2310; J3370; J7030; J7042; J7050